=== PATIENT | female | born 1985 | race Caucasian/White ===

== ENCOUNTER → 2023-05-27 13:18 | Outpatient (BNVA) | payer MEDICAID, SELFPAY | PROVIDERS: Visit Provider Nurse Practitioner Women's Health | DX: Z32.00 Encounter for pregnancy test, result unknown (principal); Z34.90 Encounter for supervision of normal pregnancy, unspecified, unspecified trimester | CPT/HCPCS: 81025; 84439; 84443; 84481; 85027; 86592; 86706; 86762; 86803; 86850; 86900; 87806 ==

== ENCOUNTER → 2023-06-22 10:23 | Outpatient (BNVA) | payer SELFPAY | PROVIDERS: Visit Provider Obstetrics & Gynecology | DX: Z34.90 Encounter for supervision of normal pregnancy, unspecified, unspecified trimester (principal); Z12.4 Encounter for screening for malignant neoplasm of cervix | CPT/HCPCS: 81000; 87624 ==

== ENCOUNTER → 2023-07-07 07:54 | Outpatient (BNVA) | payer MEDICAID, SELFPAY | PROVIDERS: Visit Provider Obstetrics & Gynecology | DX: Z34.90 Encounter for supervision of normal pregnancy, unspecified, unspecified trimester (principal) | CPT/HCPCS: 76805 ==